=== PATIENT | female | born 1990 | race Caucasian/White ===

== ENCOUNTER 2022-09-30 19:25 | Outpatient (CLI) | payer OTHER, SELFPAY ==
[2022-09-30 20:20] LABS: D Dimer Quantitative* < 0.27 ug/ml (0.00-0.50)
== END 2022-09-30 19:26 | disposition home or self-care (01) ==
LOC: NFLDUCREF 19:26
PROVIDERS: Visit Provider Registered Nurse
DX: R06.02 Shortness of breath (principal)
CPT/HCPCS: 85379

== ENCOUNTER 2022-11-15 15:01 | Outpatient (CLI) | payer OTHER, SELFPAY ==
[2022-11-15 18:08] LABS: Albumin* 4.4 g/dL (3.3-5.0)
[2022-11-15 18:09] LABS: Chloride* 105 mmol/L (96-114); Potassium* 4.5 mmol/L (3.6-5.1); Sodium* 139 mmol/L (135-149)
[2022-11-15 18:11] LABS: Aspartate Amino Transferase* 80 U/L (12-35); Bilirubin Total* 1.3 mg/dL (0.1-1.5); Carbon Dioxide* 27 mmol/L (20-32); Cholesterol* 184 mg/dL (90-199); Creatinine* 0.8 mg/dL (0.5-1.5); Estimated Glomerular Filt Rate 100 ml/min; Total Protein* 7.2 g/dL (6.0-8.3)
[2022-11-15 18:12] LABS: Alanine Aminotransferase* 202 U/L (4-35); Alkaline Phosphatase* 139 U/L (40-150); Blood Urea Nitrogen* 11 mg/dL (5-24); Calcium* 9.5 mg/dL (8.4-10.6); Glucose* 103 mg/dL (60-115); HDL Cholesterol* 49 mg/dL (>=50); LDL Cholesterol Calculated 107 mg/dL (<100); Triglycerides* 138 mg/dL (40-149)
[2022-11-15 18:37] LABS: TSH With Reflex to FT4* 0.769 uIU/mL (0.270-4.200)
[2022-11-20 20:53] LABS: Hep A Ab, IgM Negative (Negative); Hep B Core Ab, IgM Negative (Negative); Hep B Surface Antigen Negative (Negative); Hep C Ab by CIA Index 0.09 IV; Hep C Ab by CIA Interp Negative (Negative)
== END 2022-11-15 15:02 | disposition home or self-care (01) ==
PROVIDERS: PCP Family Medicine; Visit Provider Family Medicine
DX: L29.9 Pruritus, unspecified (principal); R53.83 Other fatigue; Z13.6 Encounter for screening for cardiovascular disorders
CPT/HCPCS: 80053; 80061; 80074; 84443

== ENCOUNTER 2022-11-25 07:58 | Outpatient (CLI) | payer OTHER, SELFPAY ==
[2022-11-25 09:38] LABS: Albumin* 4.1 g/dL (3.3-5.0); Chloride* 106 mmol/L (96-114); Sodium* 140 mmol/L (135-149)
[2022-11-25 09:39] LABS: Potassium* 4.3 mmol/L (3.6-5.1)
[2022-11-25 09:41] LABS: Alkaline Phosphatase* 114 U/L (40-150); Aspartate Amino Transferase* 75 U/L (12-35); Bilirubin Direct* 0.6 mg/dL (0.0-0.5); Bilirubin Total* 1.3 mg/dL (0.1-1.5); Blood Urea Nitrogen* 12 mg/dL (5-24); Carbon Dioxide* 28 mmol/L (20-32); Creatinine* 0.7 mg/dL (0.5-1.5); Estimated Glomerular Filt Rate 117 ml/min; Glucose* 107 mg/dL (60-115); Total Protein* 6.7 g/dL (6.0-8.3)
[2022-11-25 09:42] LABS: Alanine Aminotransferase* 202 U/L (4-35)
[2022-11-27 21:43] LABS: Hep A Ab, IgM Negative (Negative); Hep B Core Ab, IgM Negative (Negative); Hep B Surface Antigen Negative (Negative); Hep C Ab by CIA Index 0.08 IV; Hep C Ab by CIA Interp Negative (Negative)
== END 2022-11-25 07:59 | disposition home or self-care (01) ==
PROVIDERS: PCP Family Medicine; Visit Provider Family Medicine
DX: R74.8 Abnormal levels of other serum enzymes (principal); R79.89 Other specified abnormal findings of blood chemistry; I10 Essential (primary) hypertension
CPT/HCPCS: 80053; 80074; 80076

== ENCOUNTER 2022-12-02 07:18 | Outpatient (CLI) | payer OTHER, SELFPAY ==
--- NOTE | 2022-12-02 07:15 | CRLHL7_ITS ---
For Patients: As a result of the Century Cures Act, medical imaging exams and procedure reports are released immediately into your electronic medical record. You may view this report before your referring provider. If you have questions, please contact your health care provider. INDICATION: elevated LFTs COMPARISON: none TECHNIQUE: Real time trejo scale imaging and color Doppler analysis was performed of the right upper quadrant. FINDINGS: The patient`s liver is of normal size and has uniform echogenicity. There is a normal appearance of the hepatic IVC and proximal abdominal aorta. There is no evidence of ascites. The gallbladder is of normal size and there are multiple layering hyperechoic and shadowing gallstones within the gallbladder. The gallbladder wall measures 2 mm in thickness. The common bile duct is of normal size and measures 5 mm in diameter at the level of the stefanie hepatis. The pancreas appears normal. There is no evidence of a stone or hydronephrosis within the right kidney. The right kidney measures 10.7 cm in length. Normal patency of the main portal vein. IMPRESSION: Multiple hyperechoic and shadowing stones within the gallbladder consistent with cholelithiasis. No biliary obstruction. Dictated by Man Betts MD @ 12/02/2022 10:59:23 AM (Electronically Signed)
== END 2022-12-02 07:19 | disposition home or self-care (01) ==
LOC: US 07:19
PROVIDERS: PCP Family Medicine; Visit Provider Family Medicine
DX: R79.89 Other specified abnormal findings of blood chemistry (principal); K80.20 Calculus of gallbladder without cholecystitis without obstruction
CPT/HCPCS: 76705

== ENCOUNTER 2022-12-23 08:30 | Outpatient (CLI) | payer OTHER, SELFPAY | END 2022-12-23 08:31 | disposition home or self-care (01) | LOC: NFLDREF 13:52 | PROVIDERS: PCP Family Medicine; Referring Provider Family Medicine; Visit Provider Family Medicine | DX: R79.89 Other specified abnormal findings of blood chemistry (principal) | CPT/HCPCS: 80076 ==

== ENCOUNTER 2023-03-24 06:21 | Day surgery (SDC) | payer OTHER, SELFPAY ==
[2023-03-24] VITALS (14 sets, daily range): BP systolic 94–118; BP diastolic 58–85; PULSE 50–70; RESP 12–16; TEMP 36.3–36.7; O2SAT 98–100; BMI 23.9
[2023-03-24 06:43] LABS: HCG Qualitative* Negative (Negative)
[2023-03-24] MEDS: SODIUM CHLORIDE 0.9 % (FLUSH) 10 ML SYRINGE IVF (07:05)
[2023-03-24] MEDS: LACTATED RINGERS 1000 ML 1,000 ML 100 ML IV (07:05)
--- NOTE | 2023-03-24 07:30 | CRLHL7_ITS ---
For Patients: As a result of the Century Cures Act, medical imaging exams and procedure reports are released immediately into your electronic medical record. You may view this report before your referring provider. If you have questions, please contact your health care provider. INDICATION : Laparoscopic cholecystectomy. TECHNIQUE : Intraoperative cholangiogram. Contrast injected via gallbladder neck and cystic duct. FINDINGS : Fluoroscopy time was 12.4 seconds. Two images were obtained. IMPRESSION : Normal caliber intra and extrahepatic ducts. No filling defects. Contrast seen within the duodenum. Normal intraoperative cholangiogram. Dictated by Man Betts MD @ 03/24/2023 9:57:23 AM (Electronically Signed)
[2023-03-24] MEDS: CEFAZOLIN 2 GM INJ IVP (07:38)
[2023-03-24] MEDS: BUPIVACAINE 0.25% 30 ML INJECTION (07:53)
[2023-03-24] MEDS: 0.9 % SODIUM CHL 20 ml vial INJECTION (08:30)
[2023-03-24] MEDS: IOPAMIDOL 50 ML VIAL INJECTION (08:30)
--- NOTE | 2023-03-24 08:47 | P.GSOP_ITS ---
Operative Note Date of procedure: 03/24/23 Pre-op diagnosis: 1. Biliary colic. 2. Possible choledocholithiasis. Post-op diagnosis: 1. Biliary colic. Type of Procedure: 1. Laparoscopic cholecystectomy with intraoperative cholangiogram. Indications: 33-year-old female was seen in clinic for evaluation of recurrent episodes of mid back pain between her shoulder blades. Patient also complained of right upper quadrant pain during her painful midback pain episodes and complained that it was difficult to take a deep breath. During 1 of those severe episodes, patient had to stop her car and lie down to relieve the pain. The pain usually spontaneously resolves. Patient was not sure what brought the painful episodes on. She started to eat healthier food that did not contain fat and noticed decrease in her painful episodes. She still felt dull aching in the right upper quadrant radiating to her back after eating. Upon her workup patient was found to have minimally elevated direct bilirubin of 0.6 with AST of 75 and ALT of 202 and alkaline phosphatase at 114. This was in October. Patient had an ultrasound of the gallbladder that showed cholelithiasis with normal gallbladder wall thickness. The common bile duct was 5 mm. On clinical exam with the deep palpation of the right upper quadrant patient had discomfort but she had negative Hill's sign. Given patient's clinical history and her physical exam, biliary colic and possible choledocholithiasis was suspected, and laparoscopic cholecystectomy with intraoperative cholangiogram was recommended. The procedure was discussed in detail. The risks associated procedure including infection, bleeding, injury to intra-abdominal organs, injury to the common bile duct, and the need for additional procedures were all discussed with the patient, and she agreed to proceed. Procedure Description: After discussing the risks and benefits of the procedure, the patient signed informed consent.? The operative site was marked and the patient was brought to the operating room and placed on the operating table in supine position.? Care was taken to pad the patient's pressure points.?? The patient was then intubated by anesthesia.?? The operative site was then prepped and draped in the usual sterile fashion.? A time-out was then performed. A 5-mm laparoscopy port was placed in the left upper quadrant guided by a 5-mm laparoscope placed into a translucent trochar.~ Passage through the layers of the abdominal wall was visualized with the laparoscope.~ A pneumoperitoneum was established. A 0-degree 5-mm laparoscope was advanced into the abdomen. The abdomen was briefly surveyed, and no adhesions were noted. A 10-mm port were placed infraumbilically and two more 5 mm ports were placed on the right under direct visualization by laparoscope. The camera was then changed to 10 mm 30- degree scope and placed into the abdomen through the 10 mm port. The left upper quadrant port entrance was examined and no injury to intra-abdominal organs was identified. The gallbladder was identified, the fundus grasped and retracted cephalad. The gallbladder was full of stones. The infundibulum was grasped and retracted laterally, exposing the peritoneum overlying the triangle of Calot. This was then divided and exposed in a blunt fashion and with hook cautery. Common bile duct was not identified but care was taken not to injure it. The cystic duct was clearly identified and bluntly dissected circumferentially. Cystic artery was identified and tissues around it were dissected off. The cystic artery and the cystic duct were clearly going into the gallbladder. I stayed high on the gallbladder infundibulum so the cystic duct here was slightly dilated. The cystic artery was then clipped with two 5 mm clips on the patient's side and a single clip on the specimen side and divided with scissors. We then proceeded with intraoperative cholangiogram. The cystic duct was clipped with a 5 mm clip on the gallbladder side and a small ductotomy was made with laparoscopic Metzenbaum scissors. An additional 5 mm port was placed under direct visualization in the right upper quadrant. A blue introducer from an Arrow cholangiogram kit was placed through the port and a cholangiocatheter was placed through the introducer and directed into the cystic duct. The catheter was then clipped with a single 5 mm clip at the ductotomy site to secure it in place. Fluoroscopy was brought onto the field and Optiray 300 contrast dye was injected through the cholangiocatheter. The biliary tree was visualized and the contrast appeared to be emptying into the small bowel. There was good filling of the right and left hepatic tree. At this time 5 mm clip on the cystic duct and cholangiocatheter were removed and the cholangiocatheter was removed from the cystic duct. The duct was then clipped with two 5 mm clips on the patient's side just below the ductotomy. The cystic duct was divided at the level of the fatty me. The clips did not go completely across the cystic duct lumen because I stayed high on the infundibulum. I elected to place 0-0 PDS endoloop just proximal to the most proximal cystic duct clip. The gallbladder was dissected from the liver bed in retrograde fashion using hookcautery. Prominent veins posterior to the cystic duct were clipped with 5 mm clips on the patient's side and divided with hook cautery near the gallbladder. The gallbladder was placed into an Endo-Catch bag and removed through the infraumbilical incision. Surgical site was examined for bleeding. No bleeding was seen in the surgical field. The fascia of the infraumbilical incision was then closed with a running 0-0 vicryl. This closure site was examined intra-abdominally and no intra-abdominal structures were incarcerated in the closure. Pneumoperitoneum was completely reduced after viewing removal of the trocars under direct vision. The skin was then closed with 4-0 monocryl and steristrips were applied. Instrument, sponge, and needle counts were correct at closure and at the conclusion of the case. The patient was transferred to PACU in stable condition. Findings: Cholelithiasis. No evidence of inflammation. Anesthesia: GETA Surgeon: Carlos Gallagher MD Estimated blood loss (mL): 5 Specimen: Gallbladder Condition: stable Disposition: PACU
--- NOTE | 2023-03-24 08:57 | W.ANESCHARGE ---
Anesthesia Charges Start Date/Time Anesthesia Start Date: 03/24/23 Anesthesia Start Time: 07:30 Stop Date/Time Anesthesia Stop Date: 03/24/23 Anesthesia Stop Time: 08:59
[2023-03-24] MEDS: fentaNYL 100 MCG/2 ML inj 50 MCG IVP ×3 (09:04→09:41)
[2023-03-24] MEDS: LACTATED RINGERS 1000 ML 1,000 ML 35 ML IV (09:18)
[2023-03-24] MEDS: ONDANSETRON 2 MG/ML inj 4 MG IVP (10:47)
== END 2023-03-24 12:00 | disposition home or self-care (01) ==
PROVIDERS: PCP Family Medicine; Visit Provider Surgery
PROC: 0FT44ZZ Resection of Gallbladder, Percutaneous Endoscopic Approach (ICD-10-PCS; CPT 47563; principal; 2023-03-24 07:30)
DX: K80.10 Calculus of gallbladder with chronic cholecystitis without obstruction (principal)
CPT/HCPCS: 47563; 00790; 74300; 76000; 84703; 88304; J0330; J0690; J1100; J1170; J1885; J2250; J2405; J2704; J3010; J3490; J7120; Q9967

== ENCOUNTER 2023-12-15 08:26 | Outpatient (CLI) | payer OTHER, SELFPAY | END 2023-12-15 08:27 | disposition home or self-care (01) | LOC: NFLDREF 12-17 07:31 | PROVIDERS: PCP Family Medicine; Referring Provider Family Medicine; Visit Provider Family Medicine | DX: E78.5 Hyperlipidemia, unspecified (principal); Z13.228 Encounter for screening for other metabolic disorders | CPT/HCPCS: 80053; 80061 ==

== ENCOUNTER 2025-06-01 08:23 | Outpatient (CLI) | payer OTHER, SELFPAY | END 2025-06-01 08:24 | disposition home or self-care (01) | LOC: NFLDREF 06-02 08:27 | PROVIDERS: PCP Family Medicine; Referring Provider Family Medicine; Visit Provider Family Medicine | DX: E78.5 Hyperlipidemia, unspecified (principal); R73.01 Impaired fasting glucose | CPT/HCPCS: 80061; 82947 ==

== ENCOUNTER 2025-06-07 13:24 | Outpatient (CLI) | payer OTHER, SELFPAY ==
[2025-06-09 23:28] LABS: HPV Source Cervical/Vag
[2025-06-13 08:13] LABS: Pap Test Digital Imaging Done
== END 2025-06-07 13:25 | disposition home or self-care (01) ==
PROVIDERS: PCP Family Medicine; Visit Provider Family Medicine
DX: Z12.4 Encounter for screening for malignant neoplasm of cervix (principal); Z11.51 Encounter for screening for human papillomavirus (HPV)
CPT/HCPCS: 87624; 87625; 88141; 88142; 88175